=== PATIENT | female | born 1955 | race Caucasian/White ===

== ENCOUNTER 2016-08-01 16:14 | Emergency (ER) | payer OTHER ==
[~2016-08-01] VITALS: Ht 162.6 cm; Wt 54.0 kg
[~2016-08-01 16:14] MED LIST: ASPIRIN EC325 MG PO; ATORVASTATIN CA20 MG PO; Aspirin PO; CARISOPRODOL350 MG PO; DILAUDID2 MG PO; DOCUSATE SODIU100 MG PO; FOLIC ACID 1 MG PO; LISINOPRIL2.5 MG PO; LOPRESSOR 6.26.25 MG PO; MS CONTIN60 MG PO; OXYCODONE HYDRO15 MG PO; Prinivil PO; THIAMINE HCL100 MG PO; Theragran Vitamins PO; VITAB121000 PO; VITAMIN B1100 MG PO; ZOFRAN 4MG ORALL4 MG PO; ZOFRAN ODT4 MG SL; ZOLPIDEM TARTRA10 MG PO; [UNRECOGNIZED DRUG - OTHER] TOP
--- NOTE | 2016-08-01 16:44 | ED CARDIAC/CP/PALPITATIONS ---
History of Present Illness General Chief Complaint: Chest Pain Stated Complaint: CHEST PAIN,SOB,CHEST CONGESTION Source: patient, old records Exam Limitations: no limitations Vital Signs & Intake/Output Vital Signs & Intake/Output Vital Signs Date Time Temp Pulse Resp B/P Pulse O2 O2 Flow FiO2 Ox Delivery Rate 08/01 2145 98.6 84 18 122/64 97 Room Air 08/01 1804 80 20 125/65 100 Room Air 08/01 1753 96 Room Air 08/01 1733 86 18 112/64 96 Room Air 08/01 1624 98.4 150 20 120/82 100 Room Air Allergies Coded Allergies: venom-honey bee (Intermediate, RASH 08/01/16) Iodinated Contrast Media - Oral and (UNKNOWN 08/01/16) varenicline (From Chantix) (UNKNOWN 08/01/16) Reconcile Medications Aspirin E.c. (Ecotrin) 325 MG TAB 1 TAB PO DAILY HEART HEALTH Atorvastatin Calcium (Lipitor) 20 MG TABLET 1 TAB PO 1700 high cholesterol Carisoprodol 350 MG TABLET 1 TAB PO TID MUSCLE RELAXER (Reported) Docusate Sodium 100 MG SGL 1 TAB PO BID PRN constipation Folic Acid 1 MG TABLET 1 TAB PO DAILY supplement Lisinopril 2.5 MG TABLET 1 TAB PO D HYPERTENSION Metoprolol Tartrate (Lopressor) 25 MG TABLET 1 TAB PO DAILY hypertension Ms Contin (Morphine Sulfate ER) 60 MG TABLET.ER 1 TAB PO TID PAIN (Reported) Ondansetron Odt 4 MG TAB.RAPDIS 1 TAB PO Q6P PRN NAUSEA/VOMITING Oxycodone Hydrochloride 15 MG TAB 1 TAB PO 6XDAILY PAIN (Reported) [Theragran Vitamins] 1 TAB PO DAILY supplement Thiamine (Vitamin B1) 100 MG TAB 1 TAB PO DAILY supplement [Transderm Nitro 5MG (0.2MG/Hr)] 1 PATCH TOP DAILY chest pain Zolpidem Tartrate 10 MG TAB 1 TAB PO QPM SLEEP (Reported) Triage Note: C/O CHEST PAIN WITH COUGH, CONGESTION X 4 DAYS, CHEST PAIN WORSE 30 MINUTES AGO. STATES SHE WAS SEEN AT [facility] YESTERDAY. , DXD WITH ? PNEUMONIA, PUT ON ABX. PAIN AND SOB WROSE TODAY. Triage Nurses Notes Reviewed? yes Onset: Gradual Duration: day(s): (FEW) Timing: recent history Quality/Severity: moderate Location: LEFT CHEST Associated Symptoms: COUGH, SOB, CHEST PAIN HPI: This is a 61-year-old female who reports history of previous N STEMI status post -2015 since the ER with Chief Complaint of Chest Pain over the Last Several Days. She States She Was Seen at [facility] in the ER Yesterday for 8 Hours after Being Sent There by Her Primary Care Doctor Where She States Nothing Was Done. She Had Some Blood Work Was That Was Done but Did Not State That We Have Her Discharge Papers. She Complains of Some Chest Pain, Shortness of Breath and Cough. Denies Any Fever or Chills. Admits to Feeling Very Anxious. Denies Any Drug or Alcohol Use. Patient smokes daily. Past History Travel History Traveled to [place] past 21 day No Medical History Any Pertinent Medical History? see below for history Neurological: seizure Cardiovascular: hypertension Gastrointestinal: colitis Hepatic: hepatitis C Musculoskeletal: disk herniation, degen joint disease, CHRONIC PAIN Psychiatric: alcohol dependence TRAFFIC AGENT/Reproductive: NONE History of MRSA: No History of VRE: No History of CDIFF: No Pneumonia Vaccine: 07/11/11 Influenza Vaccine: 04/17/13 Tetanus Vaccine: 11/13/11 Surgical History Surgical History: non-contributory Psychosocial History Who do you live with Family Services at Home None What is your primary language [place] Tobacco Use: Current Daily Use Daily Tobacco Use Amount/Type: => 5 Cigarettes daily ETOH Use: denies use Family History Family History, If Any: BROTHER FH: diabetes mellitus FH: heart disease FATHER FH: diabetes mellitus FH: heart disease Hx Contributory? No Review of Systems Review of Systems Constitutional: Reports: weakness. Denies: chills, malaise. EENTM: Reports: no symptoms. Respiratory: Reports: cough, short of breath, sputum production. Cardiovascular: Reports: chest pain. Denies: palpitations. GI: Reports: no symptoms. Genitourinary: Reports: no symptoms. Musculoskeletal: Reports: no symptoms. Skin: Reports: no symptoms. Neurological/Psychological: Reports: anxiety. Hematologic/Endocrine: Denies: bruising, bleeding, polyuria, polydipsia. Immunologic/Allergic: Denies: splenectomy. All Other Systems: Reviewed and Negative Physical Exam Physical Exam General Appearance: alert, awake, cachetic, mild distress, thin Head: atraumatic, normal appearance Eyes: Bilateral: normal appearance, PERRL, EOMI. Ears, Nose, Throat: normal pharynx Neck: normal inspection, supple, full range of motion Respiratory: normal breath sounds, no respiratory distress, chest wall pain Cardiovascular: regular rate/rhythm Peripheral Pulses: 2+ radial (R), 2+ radial (L) Gastrointestinal: normal bowel sounds, soft, non-tender Back: normal inspection, normal range of motion Extremities: normal inspection, normal capillary refill, normal range of motion, no edema Neurologic/Psych: no motor/sensory deficits, awake, alert, oriented x 3 Skin: intact, normal color, warm/dry Core Measures ACS in differential dx? No Severe Sepsis Present: No Septic Shock Present: No Progress Differential Diagnosis: AMI, aortic dissection, CHF/pulm edema, costochondritis, musculoskeletal pain, myocarditis, pericarditis, pneumonia, pneumothorax, PSVT, pulmonary embolism, unstable angina Plan of Care: Orders Procedure Date/time Status Heart Healthy Diet 08/02 B Active TROPONIN LEVEL 08/01 2049 Complete EKG 08/01 2049 Active Telemetry/Door Slinger 08/01 164 Active URINE DRUGS OF ABUSE 08/01 1648 Active ACETOMINOPHEN 08/01 1648 Complete TROPONIN LEVEL 08/01 1648 Complete PARTIAL THROMBOPLASTIN TIME 08/01 1648 Complete PROTHROMBIN TIME 08/01 1648 Complete ETHANOL 08/01 1648 Complete D-DIMER 08/01 1648 Complete COMPREHENSIVE METABOLIC PANEL 08/01 1648 Complete CBC WITHOUT DIFFERENTIAL 08/01 1648 Complete EKG 08/01 1615 Active Laboratory Tests 08/01/16 2100: Troponin I < 0.01 08/01/16 1700: Anion Gap 13, Estimated GFR > 60, BUN/Creatinine Ratio 20.0, Glucose 154 H, Calcium 9.3, Total Bilirubin 0.4, AST 17, ALT 21, Alkaline Phosphatase 64, Troponin I < 0.01, Total Protein 7.1, Albumin 4.0, Globulin 3.1, Albumin/ Globulin Ratio 1.3, PT 10.4, INR 0.99, APTT 29, D-Dimer 746 H, CBC w Diff NO MAN DIFF REQ, RBC 4.29, MCV 93.7, MCH 31.8 H, RDW 12.5, MPV 7.4, Gran % 64.4, Lymphocytes % 30.1, Monocytes % 4.5, Eosinophils % 0.6, Basophils % 0.4, Absolute Granulocytes 6.4, Absolute Lymphocytes 3.0, Absolute Monocytes 0.5, Absolute Eosinophils 0.1, Absolute Basophils 0, PUBS MCHC 33.9, Acetaminophen < 10.0 L, Serum Alcohol < 10.0 EKG, TELE MONITOR, LABS, CXR. ASPIRIN ORDERED. PATIENT REQUESTING HER PAIN MEDICATIONS. TROPONIN NEGATIVE. CXR NEGATIVE. REPEAT TROPONIN/EKG ORDERED. (DAVID BENSON,CLARE) Diagnostic Imaging: Viewed by Me: Radiology Read. Discussed w/RAD: Radiology Read. CXR Impression: PATIENT: CESARNOVEMBER PRESENT AGE: 61 PATIENT ACCOUNT NO: [id number] : 54 LOCATION: [facility], [place] ORDERING PHYSICIAN: CLARE HERNANDEZ MD SERVICE DATE: 08/01/16 EXAM TYPE: RAD - XRY-PORTABLE CHEST XRAY EXAMINATION: XR PORTABLE CHEST CLINICAL INFORMATION: Chest pain and shortness of breath COMPARISON: 09/24/2014 TECHNIQUE: Portable AP view of the chest was obtained. FINDINGS: The cardiac mediastinal silhouette is stable and within normal limits. The lungs are hyperinflated but remain clear. No consolidation, pulmonary edema, pleural effusion, pneumothorax. No acute osseous abnormalities are evident. The previously present right-sided central line is no longer evident. IMPRESSION: No acute abnormality. DICTATED BY: DARBY MONAHAN MD DATE/TIME DICTATED:08/01/161719 BAG LINER:CANDICE DATE/TIME TRANSCRIBED:08/01/161719 CONFIDENTIAL, DO NOT COPY WITHOUT APPROPRIATE AUTHORIZATION. <Electronically signed in Other Vendor System> SIGNED BY: DARBY MONAHAN MD 08/01/161726 Initial ED EKG: SINUS TACHYCARDIA @ 140 BPM Repeat EKG: changed (NSR @ 68 BPM, 1ST DEG AV BLOCK) Rhythm Strip: normal sinus rhythm Departure Departure Time of Disposition: 2201 Disposition: HOME OR SELF CARE Condition: Stable Clinical Impression Primary Impression: Chest pain at rest Referrals: JESUS BENSON,ROBIN LANGSTON MD,VON Additional Instructions: Follow-up with your doctor in the office. Follow-up with a crown wheel assembler listed. Return to the ER for any changing or worsening symptoms. Departure Forms: Customer Survey General Discharge Information Critical Care Note Critical Care Note Critical Care Time: non-applicable
[2016-08-01 17:10] LABS: ABSOLUTE BASOPHIL COUNT 0 /CUMM (0.0-0.2); ABSOLUTE EOSINOPHIL COUNT 0.1 /CUMM (0.0-0.7); ABSOLUTE GRANULOCYTE CT 6.4 /CUMM (1.4-6.5); ABSOLUTE MONOCYTE COUNT 0.5 /CUMM (0.10-0.60); BASOPHIL % 0.4 % (0.0-2.0); EOSINOPHIL % 0.6 % (0-5); GRANULOCYTE % 64.4 % (42.2-75.2); HEMATOCRIT 40.2 % (37-47); MEAN CORPUSCULAR HGB 31.8 PG (27.0-31.0); MEAN CORPUSCULAR HGB CONC 33.9 G/DL (33.0-37.0); MEAN CORPUSCULAR VOLUME 93.7 FL (81.0-99.0); MEAN PLATELET VOLUME 7.4 FL (7.4-10.4); PLATELET COUNT 238 /CUMM (130-400); RBC DISTRIBUTION WIDTH 12.5 % (11.5-14.5); RED BLOOD CELL CT 4.29 /CUMM (4.20-5.40)
--- NOTE | 2016-08-01 17:27 | RADIOLOGY REPORT ---
EXAMINATION: XR PORTABLE CHEST CLINICAL INFORMATION: Chest pain and shortness of breath COMPARISON: 09/24/2014 TECHNIQUE: Portable AP view of the chest was obtained. FINDINGS: The cardiac mediastinal silhouette is stable and within normal limits. The lungs are hyperinflated but remain clear. No consolidation, pulmonary edema, pleural effusion, pneumothorax. No acute osseous abnormalities are evident. The previously present right-sided central line is no longer evident. IMPRESSION: No acute abnormality.
[2016-08-01 17:46] LABS: PT 10.4 SEC (9.4-12.5); PTT 29 SEC (25-37)
[2016-08-01 21:45] VITALS: BP 122/64
== END 2016-08-01 22:28 ==
LOC: ERH 16:14
PROVIDERS: Emergency Medicine
DX: R07.9 Chest pain, unspecified (principal); R06.02 Shortness of breath
CPT/HCPCS: 80307; 93005; 93010; G0480

== ENCOUNTER 2017-12-16 18:54 | Emergency (ER) | payer OTHER ==
[2017-12-16 19:24] VITALS: BP 169/82
[2017-12-16 19:48] LABS: ABSOLUTE BASOPHIL COUNT 0 /CUMM (0.0-0.2); ABSOLUTE EOSINOPHIL COUNT 0.1 /CUMM (0.0-0.7); ABSOLUTE GRANULOCYTE CT 6.2 /CUMM (1.4-6.5); ABSOLUTE LYMPH COUNT 3.5 /CUMM (1.2-3.4); ABSOLUTE MONOCYTE COUNT 0.5 /CUMM (0.10-0.60); BASOPHIL % 0.4 % (0.0-2.0); EOSINOPHIL % 1.1 % (0-5); HEMATOCRIT 41.4 % (37-47); MEAN CORPUSCULAR HGB CONC 33.6 G/DL (33.0-37.0); MEAN CORPUSCULAR VOLUME 95.4 FL (81.0-99.0); MEAN PLATELET VOLUME 7.3 FL (7.4-10.4); PLATELET COUNT 203 /CUMM (130-400); RBC DISTRIBUTION WIDTH 12.6 % (11.5-14.5); RED BLOOD CELL CT 4.34 /CUMM (4.20-5.40); WHITE BLOOD CELL COUNT 10.3 /CUMM (4.8-10.8)
[2017-12-16 19:51] LABS: GRANULOCYTE % 59.8 % (42.2-75.2)
--- NOTE | 2017-12-16 20:41 | ED GENERAL ADULT ---
History of Present Illness General Chief Complaint: General Adult Stated Complaint: SENT FROM WALK-IN FOR REOCURRING BRUISES Source: patient, old records Exam Limitations: no limitations Vital Signs & Intake/Output Vital Signs & Intake/Output Vital Signs Date Time Temp Pulse Resp B/P B/P Pulse O2 O2 Flow FiO2 Mean Ox Delivery Rate 12/17 1923 97.9 93 20 169/82 98 Allergies Coded Allergies: venom-honey bee (Intermediate, RASH 08/01/16) Iodinated Contrast- Oral and IV Dye (Iodinated Contrast Media - Oral and) ( UNKNOWN 08/01/16) varenicline (From Chantix) (UNKNOWN 08/01/16) Reconcile Medications Carisoprodol 350 MG TABLET 1 TAB PO TID MUSCLE RELAXER (Reported) Ms Contin (Morphine Sulfate ER) 60 MG TABLET.ER 1 TAB PO TID PAIN (Reported) Oxycodone Hydrochloride 15 MG TAB 1 TAB PO 6XDAILY PAIN (Reported) [Theragran Vitamins] 1 TAB PO DAILY supplement Thiamine (Vitamin B1) 100 MG TAB 1 TAB PO DAILY supplement [Transderm Nitro 5MG (0.2MG/Hr)] 1 PATCH TOP DAILY chest pain Zolpidem Tartrate 10 MG TAB 1 TAB PO QPM SLEEP (Reported) Triage Note: PER PT BRUISING X 6 MONTHS WENT TO WALK IN SENT IN TO CHECK PLTS. PT REPORTED WALK IN TOLD HER IT WAS DANGEROUS TO WAIT Triage Nurses Notes Reviewed? yes HPI: Patient has been having intermittent bruising of her upper extremities for the past 6 months. There is no nosebleeding. There is no vomiting blood. There is no hemoptysis. There is no gum bleeding. There is no rectal bleeding. Patient does not take any aspirin or blood thinners. Family wanted her to get checked out at the walk-in center so she went there and they sent her here to the emergency room to rule out thrombocytopenia. Patient has no other complaints. Past History Travel History Traveled to [place] past 21 day No Medical History Any Pertinent Medical History? see below for history Neurological: seizure Cardiovascular: hypertension Gastrointestinal: colitis Hepatic: hepatitis C Musculoskeletal: disk herniation, degen joint disease, CHRONIC PAIN Psychiatric: alcohol dependence CRYPTOLOGIC LINGUIST/Reproductive: NONE History of MRSA: No History of VRE: No History of CDIFF: No Tetanus Vaccine: 11/13/11 Surgical History Surgical History: non-contributory Psychosocial History Who do you live with Family Services at Home None What is your primary language [place] Tobacco Use: Current Daily Use Daily Tobacco Use Amount/Type: => 5 Cigarettes daily ETOH Use: STOP DRINKING Illicit Drug Use: denies illicit drug use Family History Family History, If Any: BROTHER FH: diabetes mellitus FH: heart disease FATHER FH: diabetes mellitus FH: heart disease Hx Contributory? No Review of Systems Review of Systems Constitutional: Reports: no symptoms. EENTM: Reports: no symptoms. Respiratory: Reports: no symptoms. Cardiovascular: Reports: no symptoms. GI: Reports: no symptoms. Musculoskeletal: Reports: no symptoms. Skin: Reports: no symptoms. Hematologic/Endocrine: Reports: see HPI, bruising. Immunologic/Allergic: Reports: no symptoms. Physical Exam Physical Exam General Appearance: well developed/nourished, alert, awake Eyes: Bilateral: PERRL, EOMI. Neck: normal inspection, supple, full range of motion Respiratory: normal breath sounds, chest non-tender, no respiratory distress, lungs clear Cardiovascular: regular rate/rhythm, normal peripheral pulses Extremities: BRUISING Neurologic/Psych: no motor/sensory deficits, awake, alert, oriented x 3, normal gait, normal mood/affect Core Measures ACS in differential dx? No CVA/TIA Diagnosis: No Sepsis Present: No Sepsis Focused Exam Completed? No Progress Differential Diagnoses I considered the following diagnoses in my evaluation of the patient: [ Thrombocytopenia, abnormal LFTs] Plan of Care: Orders Procedure Date/time Status SALICYLATE 12/16 1924 Complete COMPREHENSIVE METABOLIC PANEL 12/16 1924 Complete CBC WITHOUT DIFFERENTIAL 12/16 1924 Complete Laboratory Tests 12/16/171939: Anion Gap 13, Estimated GFR > 60, BUN/Creatinine Ratio 18.8, Glucose 116 H, Calcium 9.4, Total Bilirubin 0.3, AST 19, ALT 21, Alkaline Phosphatase 60, Total Protein 7.1, Albumin 4.4, Globulin 2.7, Albumin/Globulin Ratio 1.6, PT Cancelled , INR Cancelled, CBC w Diff NO MAN DIFF REQ, RBC 4.34, MCV 95.4, MCH 32.0 H, MCHC 33.6, RDW 12.6, MPV 7.3 L, Gran % 59.8, Lymphocytes % 34.3, Monocytes % 4.4, Eosinophils % 1.1, Basophils % 0.4, Absolute Granulocytes 6.2, Absolute Lymphocytes 3.5 H, Absolute Monocytes 0.5, Absolute Eosinophils 0.1, Absolute Basophils 0, Salicylates < 1.0 Initial ED EKG: none Departure Departure Disposition: HOME OR SELF CARE Condition: Stable Clinical Impression Primary Impression: Abnormal bruising Referrals: Esteban Ortega MD (PCP/Family) Additional Instructions: FOLLOW UP WITH YOUR REGULAR DOCTOR RETURN IF SYMPTOMS WORSEN OR FOR ANY CONCERNS Departure Forms: Customer Survey General Discharge Information Critical Care Note Critical Care Note Critical Care Time: non-applicable
== END 2017-12-16 20:45 ==
LOC: ERH 18:54
PROVIDERS: Emergency Medicine
DX: M79.81 Nontraumatic hematoma of soft tissue (principal)
CPT/HCPCS: G0480